=== PATIENT | female | born 1990 | race Two or more races ===

== ENCOUNTER 2018-07-18 23:42 | Emergency (ER) | payer OTHER ==
[~2018-07-18] VITALS: Ht 154.9 cm; Wt 70.3 kg
[2018-07-18 23:55] VITALS: BP 110/75
[2018-07-19] MEDS ORDERED: SILVER SULFADIAZINE 1 % TOPICAL CREAM 50GM TOP ONE (01:15)
== END 2018-07-19 02:51 | disposition home or self-care (01) ==
LOC: ER 23:45
DX: T23.572A Corrosion of first degree of left wrist, initial encounter (principal); T23.571A Corrosion of first degree of right wrist, initial encounter; T65.91XA Toxic effect of unspecified substance, accidental (unintentional), initial encounter; Y93.H9 Activity, other involving exterior property and land maintenance, building and construction; Y92.69 Other specified industrial and construction area as the place of occurrence of the external cause; Y99.8 Other external cause status
CPT/HCPCS: 16020